=== PATIENT | female | born 1940 | race Caucasian/White ===

== ENCOUNTER → 2018-12-27 | Outpatient (CLI) | payer MEDICARE, BC ==
[~2018-12-27] MED LIST: COUMADIN; UNABLE
== END ==
LOC: COL.RAD 07:27
DX: J32.9 Chronic sinusitis, unspecified (principal); J98.11 Atelectasis; R59.0 Localized enlarged lymph nodes; Z85.72 Personal history of non-Hodgkin lymphomas

== ENCOUNTER → 2023-05-04 | Outpatient (CLI) | payer MEDICARE, BC ==
[2023-05-04 22:25] LABS: BAND 2 % (0-10); EOSINOPHIL 2 % (0-4); LYMPHOCYTE 11 % (20.0-51.0); NEUTROPHILS 52 % (42.0-75.2)
[2023-05-04 22:26] LABS: PLATELET ESTIMATE NORMAL (NORMAL)
== END ==
LOC: ZCOL.LAB 21:45
PROVIDERS: Family Medicine
DX: C88.0 Waldenstrom macroglobulinemia (principal)

== ENCOUNTER → 2024-04-12 | Outpatient (REF) | payer MEDICARE, BC ==
[~2024-04-12] MED LIST changes: +ASPIRIN 81M81 MG/TA2 PO; +CEFTIN500 MG PO; +COREG 6.256.25 MG/TA PO; +COUMADIN 1MG1 MG/TAB PO; +COZAAR 25MG25 MG/TAB PO; +COZAAR 50MG50 MG/TAB PO; +DOXYCYCLINE 10100 MG PO; +LASIX 40MG TABL40 MG PO; +PREDNISONE20 MG PO; +SINGULAIR 110 MG/TAB PO; +TYLENOL 500MG500 MG PO
[2024-04-12 19:32] LABS: EOSINOPHIL 1 % (0-4); LYMPHOCYTE 6 % (20.0-51.0); NEUTROPHILS 71 % (42.0-75.2)
[2024-04-12 19:33] LABS: ANISOCYTOSIS 1+; PLATELET ESTIMATE DECREASED (NORMAL)
== END ==
LOC: ZCOL.LAB 18:13
PROVIDERS: Family Medicine
DX: C88.0 Waldenstrom macroglobulinemia (principal)

== ENCOUNTER 2024-05-19 09:00 | Outpatient (RCR) | payer MEDICARE, BC ==
[2024-05-19] VITALS (10 sets, daily range): BP systolic 110–130; BP diastolic 56–76; PULSE 81–90; TEMP 98.1–98.6
[~2024-05-19] VITALS: Ht 162.6 cm; Wt 90.9 kg
[2024-05-19] MEDS ORDERED: NS 250 ML IV SCH (09:45)
[2024-05-19] MEDS ORDERED: diphenhydrAMINE 25 MG CAP PO SCH (09:45)
[2024-05-19] MEDS ORDERED: Acetaminophen 325 MG TAB PO SCH (09:45)
[2024-05-19] MEDS ORDERED: COREG12.5 MG PO (11:04)
[2024-05-19] MEDS ORDERED: PROTONIX 40MG T40 MG PO (11:05)
[2024-05-19] MEDS ORDERED: COSOPT 2%-0.5%10 ML OU (11:05)
--- NOTE | 2024-05-19 15:51 | NUR ---
Pt escorted out via wheelchair by this nurse.
== END 2024-05-19 15:53 | disposition home or self-care (01) ==
LOC: EUO 09:00
DX: D50.0 Iron deficiency anemia secondary to blood loss (chronic) (principal)
CPT/HCPCS: J7050; P9016

== ENCOUNTER 2024-05-24 06:14 | Day surgery (SDC) | payer MEDICARE, BC ==
[~2024-05-24] VITALS: Ht 162.6 cm; Wt 99.5 kg
[~2024-05-24 06:14] MED LIST changes: +COREG12.5 MG PO; +COSOPT 2%-0.5%10 ML OU; +LR 1,000 ML IV SCH; +Ondansetron 4 MG/2 ML VIAL IV PRN; +PROTONIX 40MG T40 MG PO
[2024-05-24 06:50] VITALS: BP 125/77; PULSE 91; TEMP 97
--- NOTE | 2024-05-24 07:21 | NUR ---
Patient admitted to [facility] bay 2, admission assessments completed. Consent signed. Medications, pharmacy, and allergies confirmed. 22G IV inserted into left wrist on third attempt. LR infusing without issue. Pt reports recent fall with hospitalization. Uses walker with ambulation. Alert, oriented x4. at bedside. Call light within reach. Wearing incontinence brief. REports bowel prep was effective.
[2024-05-24 08:50] VITALS: BP 119/59; PULSE 81; TEMP 96.8
--- NOTE | 2024-05-24 08:50 | NUR ---
PATIENT AMBULATED TO CHAIR WITH STEADY GAIT, ASSIST OF 2. ALERT AND AWAKE. DENIES PAIN, NAUSEA AND SHORTNESS OF BREATH. BREATHING REGULAR AND UNLABORED ON ROOM AIR. SKIN WARM AND DRY. IV IN PLACE. NURSE HANDOFF COMPLETED IN ROOM. SEE CHART FOR VITAL SIGNS. PATIENT HAD APPLE JUICE AND APPLE SAUCE. BOTH FOOD AND DRINK TOLERATED WELL, NO DYSPHAGIA. PATIENT IS VERY PLEASANT, NO COMPLAINTS. CALL LIGHT IN REACH. SPOUSE PRESENT IN ROOM.
[2024-05-24 09:00] VITALS: BP 124/63; PULSE 72
[2024-05-24 09:15] VITALS: BP 122/58; PULSE 78
[2024-05-24 09:30] VITALS: BP 129/65; PULSE 81
--- NOTE | 2024-05-24 09:44 | NUR ---
0930: DISCHARGE TEACHING COMPLETED WITH PRINTED EDUCATION AND INSTRUCTIONS SENT HOME WITH PATIENT. PATIENT VERBALIZED UNDERSTANDING OF TEACHING. 0931: IV REMOVED. GAUZE AND COBAN PLACED OVER SITE. 0936: MET WITH PATIENT AND SPOUSE IN ROOM TO DISCUSS PROCEDURE. 0944: PATIENT DISCHARGED HOME WITH SPOUSE ([facility]) TRANSPORT.
== END 2024-05-24 09:44 | disposition home or self-care (01) ==
LOC: SDCO 06:14
DX: D12.3 Benign neoplasm of transverse colon (principal); D64.9 Anemia, unspecified; K21.00 Gastro-esophageal reflux disease with esophagitis, without bleeding; K44.9 Diaphragmatic hernia without obstruction or gangrene; R53.83 Other fatigue; R06.02 Shortness of breath; R19.5 Other fecal abnormalities; K57.30 Diverticulosis of large intestine without perforation or abscess without bleeding; K62.89 Other specified diseases of anus and rectum; C85.90 Non-Hodgkin lymphoma, unspecified, unspecified site; Z79.899 Other long term (current) drug therapy
CPT/HCPCS: J2704; J7120